=== PATIENT | female | born 1945 | race Hispanic/Latino ===

== ENCOUNTER 2022-03-01 08:10 | Outpatient (CLI) | payer MEDICARE | END 2022-03-01 08:11 | disposition home or self-care (01) | LOC: CSHMAMMO 08:10 | PROVIDERS: ATTEND Family Medicine | DX: Z12.31 Encounter for screening mammogram for malignant neoplasm of breast (principal) | CPT/HCPCS: 77063; 77067 ==

== ENCOUNTER 2025-02-11 08:52 | Outpatient (CLI) | payer MEDICARE | END 2025-02-11 08:53 | disposition home or self-care (01) | LOC: CSHSLEEP 08:52 | PROVIDERS: ATTEND Student in an Organized Health Care Education/Training Program | DX: G47.33 Obstructive sleep apnea (adult) (pediatric) (principal); R53.83 Other fatigue; R09.89 Other specified symptoms and signs involving the circulatory and respiratory systems; F32.A Depression, unspecified; F41.9 Anxiety disorder, unspecified; E66.9 Obesity, unspecified; Z68.29 Body mass index [BMI] 29.0-29.9, adult; R06.83 Snoring; I63.9 Cerebral infarction, unspecified; I10 Essential (primary) hypertension; G47.61 Periodic limb movement disorder | CPT/HCPCS: 95810 ==

== ENCOUNTER 2025-02-28 09:07 | Outpatient (CLI) | payer MEDICARE | END 2025-02-28 09:08 | disposition home or self-care (01) | LOC: CSHSLEEP 09:07 | PROVIDERS: ATTEND Student in an Organized Health Care Education/Training Program | DX: G47.33 Obstructive sleep apnea (adult) (pediatric) (principal); R53.83 Other fatigue; R09.89 Other specified symptoms and signs involving the circulatory and respiratory systems; F32.A Depression, unspecified; F41.9 Anxiety disorder, unspecified; E66.9 Obesity, unspecified; Z68.29 Body mass index [BMI] 29.0-29.9, adult; R06.83 Snoring; I63.9 Cerebral infarction, unspecified; I10 Essential (primary) hypertension; G47.61 Periodic limb movement disorder | CPT/HCPCS: 95811 ==